=== PATIENT | female | born 1960 | race Caucasian/White ===

== ENCOUNTER 2020-07-28 08:55 | Day surgery (SDC) | payer OTHER ==
--- NOTE | 2020-07-27 12:41 | EKG ---
[facility] [address] [facility] [place], [place] [address] Signed Normal sinus rhythm Normal ECG No previous ECGs available Confirmed by CHEY LOWE DO ([id number]) on 07/27/2020 12:41:06 PM Electronically Signed By: CHEY LOWE DO 07/27/20 1241 PATIENT NAME: SABRA LEONARDA CUI Electrocardiogram DATE OF : 62 PHYSICIAN: CHEY LOWE DO REPORT #: [id number] REPORT IS CONFIDENTIAL AND NOT TO BE RELEASED WITHOUT AUTHORIZATION
[~2020-07-28] VITALS: Ht 162.6 cm; Wt 67.0 kg
[~2020-07-28 08:55] MED LIST: ALLEGRA-D 24 H1 EACH PO; BRAIN MIGHT-DH1 EACH PO; ESTRACE42.5 GM VAGINAL; NASACORT10.8 ML; NORVASC5 MG PO; OSTERA TABLET1 EACH PO; PAXIL10 MG PO
--- NOTE | 2020-07-28 09:31 | NUR ---
07/03/20 FELL SEEING CHIROPRACTOR FOR BACK.
--- NOTE | 2020-07-28 11:44 | NUR ---
PATIENT BACK IN DAY SURGERY ROOM FROM PACU. DENIES PAIN. VS CHECKED. IV SITE WNL. PATIENT REQUESTED SCDs OFF. PATIENT STATES FEELING "RESTLESS AND LOOPY." NO OTHER NEEDS AT THIS TIME. CALL LIGHT WITHIN REACH. LISSETTE WATER PLACED AT BEDSIDE.
--- NOTE | 2020-07-28 11:44 | NUR ---
07/28/20 1144 Marcelina Cabrera 1101 PT ARRIVED IN PACU SLEEPY WITH NO C/O'S LAYING ON L SIDE. 1110 PT REPOSITIONED SELF TO R SIDE. NO C/O'S. 1120 PT ASKING QUESTIONS ABOUT SURGERY AND ANESTHESIA. ALL QUESTIONS ANSWERED. 1135 TO DS. REPORT GIVEN TO RN. CALL LIGHT ON BED.
--- NOTE | 2020-07-28 12:05 | NUR ---
PT USES CALL LIGHT TO NOTIFY DS STAFF OF URGE TO VOID. PT DENIES ANY DIZZINESS OR NAUSEA AND HAS STEADY GAIT TO BATHROOM WITH RN ASSIST. PT ABLE TO VOID APPROX 400 MLS DILUTE YELLOW URINE WITH NO PROBLEMS. PT BACK TO DS RM 3 TO WAIT UNTIL DC CRITERIA IS MET. PT PROVIDED PUDDING, CALL LIGHT WITHIN REACH.
--- NOTE | 2020-07-28 12:45 | NUR ---
PT CALLED AIRLINE CAPTAIN LIGHT AND PT REPORTS BEING COLD AND WOULD LIKE TO GET DRESSED. VSS AND PT UP AT EDGE OF BED AND STEADY ON HER FEET, PT DRESSES HERSELF.
--- NOTE | 2020-07-28 13:43 | NUR ---
1245: VS CHECKED. IV DC'D WNL. DISCHARGE INSTRUCTIONS GIVEN TO PATIENT. 1255: PATIENT DISCHARGED TO HOME VIA WHEELCHAIR WITH BROTHER.
--- NOTE | 2020-08-04 15:28 | OR ---
[facility] [address] [place], [place] [address] Signed DATE OF OPERATION: 07/28/2020 SURGEON: Jose Velasquez MD PREOPERATIVE DIAGNOSIS: Oral lesion. POSTOPERATIVE DIAGNOSIS: Oral lesion. PROCEDURE: Excisional biopsy of oral lesion. ANESTHESIA: General, LMA; CALIBRATION SPECIALIST, Calderon. PREOPERATIVE HISTORY: Elham is a 59-year-old lady with oral lesions, very inflamed, friable, ulcerated. She was taken to the operating room for biopsy for pathologic diagnosis. PROCEDURE AND FINDINGS: After informed consent, the patient was taken to the operating room, placed in the supine position, where general LMA anesthesia was induced. The patient and procedure were verified. Headlight exam of the oral cavity showed a very red, prominent oral lesions on the mandibular gingiva anteriorly extended from about canine to canine from the attached gingival edge superiorly down about residential to the buccal gingival sulcus, this was very reddish, friable looking tissue. Several wedge biopsies were taken with #15 blade, sent to pathology for special handling immunofluorescence and H and E. The biopsy sites bled prominently and this bleeding was controlled with Coblation. Hemostasis was obtained. Pharynx suctioned clear of blood secretions. The patient was then awakened, extubated, transported to the recovery room in good condition. No complications. Blood loss minimal. A 0.25% Marcaine with epi was injected around the biopsy sites. No drains. No complications. Jose Velasquez MD Electronically Signed By: JOSE VELASQUEZ MD 08/04/20 1528 PATIENT NAME: ELHAM LEONARD OPERATIVE REPORT DATE OF : 62 REPORT #: [id number] PHYSICIAN: JOSE VELASQUEZ MD PCP: PAMELA ODONNELL DO REPORT IS CONFIDENTIAL AND NOT TO BE RELEASED WITHOUT AUTHORIZATION [address] [address] Signed /MODL /[id number] Copies: ~ Electronically Signed By: JOSE VELASQUEZ MD 08/04/20 1528 PATIENT NAME: ELHAM LEONARD OPERATIVE REPORT DATE OF : 62 REPORT #: [id number] PHYSICIAN: JOSE VELASQUEZ MD PCP: PAMELA ODONNELL DO REPORT IS CONFIDENTIAL AND NOT TO BE RELEASED WITHOUT AUTHORIZATION
--- NOTE | 2020-08-05 12:54 | PATH ---
[facility] [address] [place], [place] [address] Signed SPECIMEN(S): B ANTERIOR MANDIBLE GUM IN OSCAR SPECIMEN(S): A ANTERIOR MANDIBLE GUM SPECIMEN SOURCE: A. ANTERIOR MANDIBLE GUM B. ANTERIOR MANDIBLE GUM IN OSCAR CLINICAL HISTORY: Pre/Postop Diagnosis: 6-month history of oral lesions, along mandible anterior. See attached HP. FINAL PATHOLOGIC DIAGNOSIS: A. Anterior mandible, gingiva, biopsy: - Ulcerated surface squamous epithelium with underlying dense plasma cell inflammation. - See Comment. B. Anterior mandible, gingiva, biopsy for DIF: - No immunofluorescence performed (see Comment). COMMENT: The observed histologic features appear reactive in nature, with no evidence of neoplasia identified on multiple levels reviewed. The surface epithelium is partially ulcerated, and the underlying dense inflammatory infiltrate is composed predominantly of plasma cells, intermixed with lymphocytes and neutrophils. Goree and Lambda expression via in situ hybridization confirms a polyclonal plasma cell population, consistent with a reactive process. No definitive micro-organisms are identified with GMS special stain or T Pallidum immunostain. Tissue controls react appropriately. Overall, plasma cell gingivitis is most strongly considered based on the noted histologic features and the described clinical presentation. Plasma cell gingivitis may occur as a hypersensitivity response to specific foods, gum, mints, candies, or oral hygiene products, or may be idiopathic in nature. A few suggested references are included below for additional information, if desired. Continued clinical correlation and surveillance is encouraged. While no evidence of a neoplastic process is seen in the tissue provided, rebiopsy may be warranted if the areas of concern exhibit changes indicative of neoplastic development or progression. This case was reviewed in consultation with Aidee Swain DDS, MS, Board PATIENT NAME: JILL LEONARD PATHOLOGY DATE OF : 62 REPORT #: [id number] PHYSICIAN: OBDULIO PATHOLOGY PCP: PAMELA ODONNELL DO REPORT IS CONFIDENTIAL AND NOT TO BE RELEASED WITHOUT AUTHORIZATION [facility] [address] [place], [place] [address] Signed Certified Oral and Maxillofacial Pathologist, and with Juan Bobo M.D., MPH, Board Certified Hematopathologist. As per Dr. Swain's discussion with Dr. Velasquez via telephone on 08/04/2020, immunofluorescence was not performed in this case, based on the histologic features of part A. REF: Subha Y, Wesly S, Kenzie MS, Josh M. 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 Case Rep [place]. 2018Jan 28;2019. Reymundo JS, Christopher DA, Carmen VR, et al. Plasma Cell Gingivitis A Conflict of Diagnosis (Case Report). Journal of Clinical and Diagnostic Research, 2016 Nov, Vol 10(11): [id number]. Leonarda BS, Cam NR, Mario PS, et al. Plasma-Cell Gingivitis a Challenge to the Oral Physician. Contemp Clin [place] 2019 Aug-Oct; 1-(3):565-570. TWK:BRIANNA: GP:abelardo:C2NR MICROSCOPIC EXAMINATION: Histologic sections of all submitted blocks are examined by light microscopy. These findings, together with the gross examination, support the pathologic diagnosis. GROSS DESCRIPTION: The specimen, labeled "TE, A.," and designated on the requisition "mandible anterior gum lesion," is received in formalin and consists of one rajput-pink mucosal tissue fragment measuring 0.6 x 0.4 x 0.3 cm. Specimen is entirely submitted in cassette (A1). Note: Second container received with tissue fragment in Oscar media for immunofluorescence, forwarded to Faye. Per Dr. Vyas, two pieces of tissue received fresh. One placed in Oscar fixative for IF, the other placed in formalin for routine. AT (under the direct supervision of a pathologist) The Gross Description was prepared using a voice recognition system. The report was reviewed for accuracy; however, sound-alike word errors, addition and/or deletions may occur. If there is any question about this report, please contact Client Services. PERFORMING LABORATORY: The technical component was performed by [facility], [address] [place], [place] [id number] (Seat Mender: Christina Gomez MD; CLIA# [id number]). The professional interpretation was performed by [facility], [facility], [address] [place] [address]. PATIENT NAME: JILL LEONARD PATHOLOGY DATE OF : 62 REPORT #: [id number] PHYSICIAN: OBDULIO PATHOLOGY PCP: PAMELA ODONNELL DO REPORT IS CONFIDENTIAL AND NOT TO BE RELEASED WITHOUT AUTHORIZATION [facility] [address] [place] [id number] Signed Diagnostician: Tristin Sweet MD Pathologist Electronically Signed 08/05/2020 Copies: ~ PATIENT NAME: JILL LEONARD PATHOLOGY DATE OF : 62 REPORT #: [id number] PHYSICIAN: OBDULIO ESPINAL PCP: PAMELA ODONNELL DO REPORT IS CONFIDENTIAL AND NOT TO BE RELEASED WITHOUT AUTHORIZATION
== END 2020-07-28 12:55 | disposition home or self-care (01) ==
LOC: DS 08:55 → OPS 08:55 → DS 11:00 → OPS 12:55
PROVIDERS: ATTEND Otolaryngology
PROC: 0CB Mouth and Throat, Excision (ICD-10-PCS; principal; 2020-07-28 11:00)
DX: K06.8 Other specified disorders of gingiva and edentulous alveolar ridge (principal); I10 Essential (primary) hypertension; E78.00 Pure hypercholesterolemia, unspecified; G47.30 Sleep apnea, unspecified; Z88.1 Allergy status to other antibiotic agents; Z88.0 Allergy status to penicillin; Z88.8 Allergy status to other drugs, medicaments and biological substances; Z91.030 Bee allergy status
CPT/HCPCS: 00170; 80053; 85025; 93005; 93010; J1100; J1885; J2001; J2405; J2704; J7121

== ENCOUNTER 2023-02-27 15:14 | Inpatient (IN) | payer OTHER ==
[~2023-02-27] VITALS: Ht 162.6 cm; Wt 71.0 kg
[2023-02-27 16:04] LABS: BASOPHILS 0.8 % (0-2); EOSINOPHILS 1.9 % (0-6); HEMATOCRIT 43.5 % (35.0-50.0); HEMOGLOBIN 14.4 g/dL (12.0-18.0); LYMPHOCYTES 24.8 % (24-44); MCH 27.9 (27-36); MCHC 33.1 g/dl (30-36); MCV 84.5 fl (81-99); MONOCYTES 9.5 % (0-12); PLATELET COUNT 197 K/uL (140-440); RBC 5.15 M/ul (4.3-5.7); RDW 13.3 (10.5-15.0)
[2023-02-27 16:16] LABS: INR 0.97 (0.80-1.30); PARTIAL THROMBOPLASTIN TIME 25.8 Sec (22.9-41.3); PROTIME 12.2 Sec (11.2-14.2)
[2023-02-27 16:20] LABS: ALBUMIN 4.1 g/dL (3.4-5.0); ANION GAP 12.4 (7-21); BUN/CREATININE RATIO 10.97 (6.0-28.6); CREATININE, SERUM 0.82 mg/dL (0.55-1.02); POTASSIUM 3.4 mmol/L (3.5-5.1); PROTEIN, TOTAL 8.2 g/dL (6.4-8.2)
[2023-02-27 16:46] LABS: ABO O; ANTIBODY SCREEN NEGATIVE; RH POSITIVE
[2023-02-27 17:47] LABS: BILIRUBIN, URINE NEGATIVE (negative); BLOOD/HGB, URINE NEGATIVE (Negative); KETONE, URINE NEGATIVE (Negative); LEUK ESTERASE, URINE NEGATIVE (negative); NITRITE, URINE NEGATIVE (negative); PH, URINE 6.5 (5-7)
--- NOTE | 2023-02-27 20:45 | NUR ---
PT TO FLOOR VIA STRETCHER AND ED RN. BEDSIDE REPORT RECEIVED. PT ALERT AND ORIENTED. INDEPENDENT TO BR TO VOID. BACK TO BED. DENIES PAIN OR NAUSEA. VS OBTAINED. IVF/ABX INFUSING PER ORDER. BIOPROCESSING MANUFACTURING TECHNICIAN IN ROOM FOR ADMISSION.
[2023-02-27 20:47] VITALS: BP 160/78
--- NOTE | 2023-02-27 21:48 | NUR ---
ADMISSION ASSESSMENT COMPLETE. SCHEDULED MEDS ADMIN PER EMAR. PT REPORTS LOWER ABD PAIN 04/22. PRN FOR PAIN ADMIN. WARM COMPRESS PROVIDED. IVF INFUSING WNL. BOWEL TONES ACTIVE. ABD SOFT. CLEAR LIQUIDS PROVIDED. PT ORIENTED TO ROOM AND NURSE CALL LIGHT. PT DENIES QUESTIONS OR CONCERNS. CALL LIGHT IN REACH.
--- NOTE | 2023-02-27 23:10 | NUR ---
SBA PATIENT CALLED TO USE THE BATHROOM. PATIENT VOIDED 375ML YELLOW URINE. PATIENT IS BACK IN BED. DENIES FURTHER NEEDS AT THIS TIME.
[2023-02-28] VITALS (9 sets, daily range): BP systolic 11–143; BP diastolic 57–87
--- NOTE | 2023-02-28 01:55 | NUR ---
PT RESTING ON RIGHT SIDE WITH EYES CLOSED. AWAKENS EASILY. VS AND I&O OBTAINED. PT DENIES PAIN OR NAUSEA. ABD ASSESSMENT UNCHANGED. NO NEEDS AT THIS TIME.
--- NOTE | 2023-02-28 05:53 | NUR ---
PT RESTING WITH EYES CLOSED. AWAKENS EASILY. VS AND I&O OBTAINED. PT DENIES ABD PAIN OR NAUSEA. PRN TYLENOL GIVEN FOR "CAFFEINE WITHDRAWAL." NEW BAG IVF INFUSING WNL. PT DENIES FURTHER NEEDS. CALL LIGHT IN REACH.
--- NOTE | 2023-02-28 06:35 | NUR ---
SBA PATIENT GOT UP TO USE THE RESTROOM. PATIENT VOIDED 650ML YELLOW URINE. PATIENT IS BACK IN BED. CHICKEN BROTH PROVIDED PER PATIENT. NO OTHER NEEDS AT THIS TIME.
--- NOTE | 2023-02-28 07:00 | NUR ---
BEDSIDE HANDOFF REPORT RECEIVED FROM VOCAL ARTIST RN. PT RESTING IN BED, DISCUSSED PLAN OF CARE FOR THE DAY. PT DENIES NEEDS AT THIS TIME.
--- NOTE | 2023-02-28 08:10 | NUR ---
PT RESTING IN BED. MORNING ASSESSMENT COMPLETED. PT DENIES NAUSEA, RLQ ABD PAIN WITH PALPATION. MORNING MEDICATIONS ADMINISTERED. PT REFUSED LOVENOX INJECTION, EDUCATED ON DVT PROPHYLAXIS BUT CONTINUES TO REFUSE. MIRALAX GIVEN WITH CUP OF ICE. PT DENIES OTHER NEEDS AT THIS TIME.
--- NOTE | 2023-02-28 08:56 | CONS ---
[facility] [address] [place], [place] [address] Signed DATE OF CONSULTATION: 02/28/2023 CHIEF COMPLAINT: Rectal bleeding. 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 She is in need of a followup colonoscopy. At that time, she had no lower GI complaints. In 2006 at the age of 53, she was having some rectal bleeding and left-sided colitis. She had a colonoscopy and was treated with antibiotics and did better. She later had a supracervical ovary-sparing hysterectomy for her endometriosis in 2009 in [place], [place]. A few weeks later, she had to go back for a laparotomy and lysis of adhesions with the same surgeon and then in 2017 at the age of 56, she had a colonoscopy in [place], [place] and a precancerous polyp had been removed. She was asked to follow up every five years. Her brother, Joshua, happens to live with her. He had multiple colonic polyps removed at age 59 and has been asked to follow up every five years. Elham tells me I did the colonoscopy for her brother. Elham told the ER physician that she had been feeling ill since yesterday. She had some nausea and vomiting. She had a hard bowel movement containing pellets and then later some diarrhea. She saw some blood associated with that. She decided to come to the emergency room for evaluation. She is actually tender just to the right of the suprapubic midline. She told me the last time it was higher up in the left side. Her white count was up at 15,[address] scan confirmed what looks like some inflammatory changes in the descending colon, most likely from ischemic colitis according to the radiologist. She was given some IV fluids and Levaquin and Flagyl and I have been asked to admit her as a general surgeon on-call. She tells me she has done well overnight. She was curious if she should go home this morning. Afterwards she thought maybe she would stay for her bowel prep and a colonoscopy maybe tomorrow or the next day depending on her clinical course. PAST MEDICAL HISTORY: Hypertension, hyperlipidemia, sleep apnea on CPAP, impaired fasting glucose atopic dermatitis, plasma cell gingivitis, left lower extremity injury and endometriosis. PAST SURGICAL HISTORY: Includes a colonoscopy in [place], [place] for her colitis, rectal bleeding and hyperplastic polyp in 2006 at the age of 53. A colonoscopy in [place], [place] for a precancerous polyp in 2017 at the age of 56. Cervical sparing hysterectomy for endometriosis in 2009 in [place], [place] followed by laparotomy and lysis of adhesions in May of that same year. ALLERGIES: Zoloft caused angioedema. Penicillin caused rash. Lisinopril caused nausea. Rocephin Electronically Signed By: JIL MARADIAGA MD 02/28/23 0856 PATIENT NAME: ELHAM LEONARD CONSULTATION DATE OF : 62 REPORT #: [id number] PHYSICIAN: JIL MARADIAGA MD PCP: ROCK ODONNELL DO REPORT IS CONFIDENTIAL AND NOT TO BE RELEASED WITHOUT AUTHORIZATION [address] [address] Signed causes a rash. Amoxicillin causes a rash. Erythromycin caused allergy. MEDICATIONS: 1. Estrace. 2. Greer. 3. Ibuprofen. 4. Nasacort. 5. Vitamin B. 6. Vitamin D. 7. Norvasc. 8. Paroxetine. 9. Triamcinolone 0.1% cream p.r.n. REVIEW OF SYSTEMS: She had 10 systems reviewed and really no new issues other than what she describes in the history of present illness and she talked about her ankle injury in May 2022. SOCIAL HISTORY: She said her dad was a chain smoker. Her brother Joshua smokes but he has to go outside. She has never been a smoker. She is and has three children. 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 She also helps at [employer]. Dr. Rock Odonnell is her primary care provider. She prefers the [facility]. Her son, Magdi has a who is in medical school in [place], [place]. His phone number is [phone]. FAMILY HISTORY: Her brother Joshua had multiple colonic polyps removed at age 59 and he is going to follow up every five years. Her father of lung cancer. Mom had cardiomyopathy. Her paternal grandmother had vaginal cancer and cardiomyopathy. Her siblings have osteoporosis and depression. Her brother had colonic polyps at age 59. PHYSICAL EXAMINATION: VITAL SIGNS: Her blood pressure is 125/72, heart rate 70, respiratory rate 16, temperature is 97.5, she is 99% on room air. She is 5 feet 4 inches at 71 kg with a body mass index of 26. GENERAL: Elham is a 62-year-old female, lying supine in her hospital bed. She is alert, awake, and interactive. She is in no acute distress. She is not systemically ill or toxic. She has a full round face. LUNGS: Clear to auscultation bilaterally. HEART: Regular rate and rhythm without murmurs. ABDOMEN: Generally soft, flat with some mild suprapubic tenderness slightly off to the right in the midline. RECTAL: Exam is not repeated this morning. LABORATORY DATA: Electronically Signed By: JIL MARADIAGA MD 02/28/23 0856 PATIENT NAME: ELHAM LEONARD CONSULTATION DATE OF : 62 REPORT #: [id number] PHYSICIAN: JIL MARADIAGA MD PCP: ROCK ODONNELL DO REPORT IS CONFIDENTIAL AND NOT TO BE RELEASED WITHOUT AUTHORIZATION [facility] [address] [place], [place] [address] Signed Her white blood cell count is 15,000, hemoglobin 14, neutrophils 63, platelets 197, potassium 3.4, creatinine 0.8. Urinalysis negative. INR is 0.9. Liver function tests are negative. Albumin is 1.1. C diff toxin apparently was sent in the ER and that is pending. An EKG was not performed. Her fecal occult blood test apparently was performed in the ER, but I do not see those results. RADIOGRAPHIC STUDIES: The CT scan report shows some inflammation of the descending colon. The rest of the colon is fine. 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 She does not have a history of smoking, although her father was a chain smoker. She told me she did quite well on IV fluids and antibiotics back in 2006. I think we are going to continue that here. We will use Levaquin and Flagyl due to her allergies. We will give her a small amount of potassium today and let her have some clear liquids along with some MiraLAX. We will withhold any Dulcolax pills. Hopefully that will go well. We will plan on doing a colonoscopy probably tomorrow. If things are going well, she may go home on Levaquin and Flagyl. She knows if things would decline, she might need surgery but that would only be if she got significantly worse. She has expressed understanding and agrees with the above plan. Jil Maradiaga MD ALB/MODL /[id number] cc: MD Rock Harmon DO Copies: JIL MARADIAGA MD, ARIAN DO ~ Electronically Signed By: JIL MARADIAGA MD 02/28/23 0856 PATIENT NAME: ELHAM LEONARD CONSULTATION DATE OF : 62 REPORT #: [id number] PHYSICIAN: JIL MARADIAGA MD PCP: ROCK ODONNELL DO REPORT IS CONFIDENTIAL AND NOT TO BE RELEASED WITHOUT AUTHORIZATION
--- NOTE | 2023-02-28 09:18 | NUR ---
PT UP TO RESTROOM AND BACK TO BED INDEPENDENTLY. PT NOW BACK TO BED. WARM BROTH GIVEN. WHITE BOARD UPDATED. CALL LIGHT IN REACH. NO FURTHER NEEDS AT THIS TIME.
--- NOTE | 2023-02-28 10:11 | NUR ---
pt complaint of arm pain with potassium infusion, rate slowed to 100 ml/hr and infusing concurrently with iv fluids. pt denies other pain. pt denies needs at this time.
--- NOTE | 2023-02-28 10:20 | NUR ---
STOOL SAMPLE SENT TO LAB.
--- NOTE | 2023-02-28 10:30 | NUR ---
PT WITH MULTIPLE LOOSE STOOLS FROM BOWEL PREP, GIVEN BARRIER WIPES, BED SIDE COMMODE SET UP AT SIDE OF BED.
--- NOTE | 2023-02-28 11:06 | NUR ---
ROUNDS. PT INDISPOSED. DID NOT INTRUDE. PROVIDED SILENT PRAYER.
--- NOTE | 2023-02-28 11:28 | NUR ---
ATTEMPTED TO ASSESS PATIENT. PATIENT ON BSC, REQUEST RETURN THIS AFTERNOON.
--- NOTE | 2023-02-28 11:33 | NUR ---
UR NOTE [facility] INFLAMMATORY BOWEL DISEASE RRG ([facility]) 02/27/23 MET CLINICAL INDICATIONS FOR ADMISSION TO INPATIENT CARE
--- NOTE | 2023-02-28 13:27 | NUR ---
PATIENT IN BED WATCHING TV AT THIS TIME. VITALS AND I&O'S DONE AND CHARTED. CALL LIGHT IN REACH. NO FURTHER NEEDS AT THIS TIME.
--- NOTE | 2023-02-28 14:50 | NUR ---
PT RESTING IN BED. PT REQUESTING TYLENOL FOR MILD ABD APIN 2/10, GIVEN. PT WITH CLEAR GREEN/YELLOW STOOL. PT DENIES OTHER NEEDS AT THIS TIME.
--- NOTE | 2023-02-28 16:24 | NUR ---
PT RESTING IN BED, C/O "SORE BOTTOM" FROM BOWEL PREP. BARRIER CREAM GIVEN TO PT. NO OTHER COMPLAINTS OR REQUESTS AT THIS TIME.
--- NOTE | 2023-02-28 17:45 | NUR ---
pt's gown changed. pt resting in bed eating clear liquid diet per order. no complaints or requests at this time
--- NOTE | 2023-02-28 19:27 | NUR ---
REPORT RECEIVED FROM DAY SHIFT RN. PT LYING IN BED ALERT AND ORIENTED. DENIES NEEDS. WHITE BOARD UPDATED. CALL LIGHT IN REACH.
--- NOTE | 2023-02-28 20:52 | NUR ---
CALL LIGHT ANSWERED. pt WITH LIQUID STOOL ON FLOOR STATES "I THINK I PULLED MY IV". IV SITE ASSESSED, FLUSHED WNL. IVF INFUSING ORDERED. ROOM CLEANED. COOMMODE EMPTIED, GREEN/CLEAR LIQUID STOOL. NEW GOWN AND ATTENDS PLACED ON pt. VSS. PRIMARY RN NOTIFIED.
--- NOTE | 2023-02-28 21:01 | NUR ---
EVENING ASSESSMENT COMPLETE. SCHEDULED MEDS ADMIN PER EMAR. PT REPORTS "ANNOYING" LOWER ABD PAIN. AGREES TO WAIT FOR PRN TYLENOL ADMINISTRATION. REPORTS SLIGHT NAUSEA. REFUSES PRN N/V WHEN OFFERED. WARM COMPRESS PROVIDED FOR ABD. BOWEL TONES ACTIVE. ABD SOFT. DISCUSSED NPO STATUS AT MIDNIGHT FOR PROCEDURE TOMORROW. PT VERBALIZES UNDERSTANDING. NO FURTHER NEEDS AT THIS TIME. CALL LIGHT IN REACH.
--- NOTE | 2023-02-28 22:53 | EKG ---
[facility] [address] [facility] [place] [address] Signed Normal sinus rhythm Normal ECG When compared with ECG of 27-JUL-2020 07:43, No significant change was found Confirmed by Cayla Morley MD () on 02/28/2023 10:52:44 PM Electronically Signed By: CAYLA MORLEY MD 02/28/23 2253 PATIENT NAME: JILL LEONARD Electrocardiogram DATE OF : 62 PHYSICIAN: CAYLA MORLEY MD REPORT #: [id number] REPORT IS CONFIDENTIAL AND NOT TO BE RELEASED WITHOUT AUTHORIZATION
--- NOTE | 2023-02-28 23:23 | NUR ---
PT UP TO BR TO VOID 200 ML CLEAR YELLOW URINE. BACK TO BED, ALON WELL. PT REPORTS ABD PAIN 1-2/10 AND "UNCOMFORTABLE" PRN FOR PAIN ADMIN PER EMAR. PERSONAL CPAP IN PLACE. PT DENIES FURTHER NEEDS.
--- NOTE | 2023-03-01 02:08 | NUR ---
PT RESTING ON RIGHT SIDE WITH CPAP IN PLACE. RESPIRATIONS EVEN. NEW BAG IVF INFUSING PER ORDER. CALL LIGHT IN REACH.
[2023-03-01 02:54] VITALS: BP 138/80
--- NOTE | 2023-03-01 04:05 | NUR ---
PT RESTING IN BED WITH EYES CLOSED. RESPIRATIONS EVEN. CALL LIGHT IN REACH.
[2023-03-01 05:32] LABS: BASOPHILS 0.8 % (0-2); EOSINOPHILS 4.2 % (0-6); HEMATOCRIT 37.7 % (35.0-50.0); HEMOGLOBIN 12.7 g/dL (12.0-18.0); LYMPHOCYTES 29.9 % (24-44); MCH 28.3 (27-36); MCHC 33.8 g/dl (30-36); MCV 83.8 fl (81-99); MONOCYTES 9.4 % (0-12); NEUTROPHILS 55.7 % (39-80); PLATELET COUNT 175 K/uL (140-440); RDW 13.4 (10.5-15.0)
[2023-03-01 05:39] VITALS: BP 133/73
[2023-03-01 05:47] LABS: ANION GAP 11.2 (7-21); BUN/CREATININE RATIO 5.47 (6.0-28.6); CALCIUM 8.3 mg/dL (8.5-10.1); CREATININE, SERUM 0.73 mg/dL (0.55-1.02); MAGNESIUM 1.3 mg/dL (1.8-2.4); PHOSPHORUS, INORGANIC 3.5 mg/dL (2.5-4.9); POTASSIUM 3.2 mmol/L (3.5-5.1)
--- NOTE | 2023-03-01 06:02 | NUR ---
LAB IN ROOM FOR MORNING DRAW. VS AND I&O OBTAINED, WNL. PT REPORTS HEADACHE PAIN. DECLINES IV PAIN MEDICINE. TOO SOON FOR PRN TYLENOL. PT REPORTS SHE WILL WAIT IT OUT, ASSOCIATES GARCIA PAIN TO CAFFEINE WITHDRAWAL. PT REMAINS NPO FOR PROCEDURE. IVF INFUSING PER ORDER. ORAL SWABS PROVIDED. NO FURTHER NEEDS.
--- NOTE | 2023-03-01 06:17 | NUR ---
UPDATED ON RESULTS OF MORNING LABS. NEW TELEPHONE ORDERS RECEIVED VERIFIED WITH READBACK METHOD.
--- NOTE | 2023-03-01 07:25 | NUR ---
REPORT RECEIVED FROM SUMAC TANNER NURIS BERUMEN. PATIENT IS SITTING UPRIGHT IN BED AND TALKING ON THE PHONE. PATIENT STATED NO FURTHER NEEDS AT THIS TIME. CALL LIGHT AND PERSONAL BELONGINGS ARE WITHIN REACH.
--- NOTE | 2023-03-01 08:38 | NUR ---
PATIENT MORNING MEDICATIONS ADMINISTERED PER THE EMAR. PATIENT FULL ASSSESSMENT COMPLETE AND DOCUMENTED IN THE CHART. PATIENT LUNG SOUNDS ARE CLEAR BILATERALLY IN ALL LUNG PEREZ AND PATIENT IS ON ROOM AIR. NORMAL S1 AND S2 ON AUSCULTATION. BOWEL TONES ARE ACTIVE IN ALL FOUR QUADRANTS AND PATIENT STATED HAVING SOME TENDERNESSS IN THE ABDOMEN. PATIENT RADIAL AND PEDAL PULSES ARE STRONG BILATERALLY. PATIENT STATED NO PAIN AT THIS TIME. NO NUMBNESS AND TINGLING. IV SITE IS CLEAN, DRY, AND INTACT. PATIENT EXPRESSED BURNING DUE TO THE POTASSIUM RUNNING. PATIENT AMBULATED TO THE BATHROOM TO URINATE. PATIENT NOW BACK IN BED AND LYING DOWN. PATIENT STATED NO FURTHER NEEDS AT THIS TIME. CALL LIGHT AND PERSONAL BELONGINGS ARE WITHIN REACH.
--- NOTE | 2023-03-01 09:40 | NUR ---
UR NOTE 02/28/23 VARIANCE GL DAY 2 03/01/23 VARIANCE GL DAY 2
--- NOTE | 2023-03-01 09:57 | NUR ---
PATIENT IV SITE WRAPPED WITH A WASH CLOTH AND SOME COBAN. PATIENT IV POTASSIUM INFUSING AT THIS TIME. PATIENT STATED NO FURTHER NEEDS AT THIS TIME. CALL LIGHT AND PERSONAL BELONGINGS ARE WITHIN REACH.
--- NOTE | 2023-03-01 10:10 | NUR ---
PATIENT HEADED DOWN TO SURGERY. PATIENT WITH OR NURSE.
--- NOTE | 2023-03-01 10:25 | NUR ---
PATIENT OFF THE FLOOR TO OR. WILL ATTEMPT TO VISIT WHEN SHE RETURNS.
--- NOTE | 2023-03-01 10:31 | NUR ---
ROUNDS. PT NOT IN ROOM. PROVIDED PRAYER.
--- NOTE | 2023-03-01 12:07 | NUR ---
PATIENT BACK TO THE FLOOR. REPORT RECEIVED FROM NURIS MATHEWS IN DAY SURGERY/PACU. POTASSIUM CHLORIDE INFUSION RESUMED. PATIENT TOLERATING WELL. VITAL SIGNS TAKE. PATIENT LUNCH ORDERED. PATIENT STATED NO FURTHER NEEDS AT THIS TIME. CALL LIGHT AND PERSONAL BELONGINGS ARE WITHIN REACH.
[2023-03-01 12:08] VITALS: BP 133/65
--- NOTE | 2023-03-01 12:24 | NUR ---
PATIENT LUNCH TRAY ORDERED. FRESH ICE WATER GIVEN TO THE PATIENT. PATIENT STATED NO FURTHER NEEDS AT THIS TIME. CALL LIGHT AND PERSONAL BELONGINGS ARE WITHIN REACH.
--- NOTE | 2023-03-01 12:29 | NUR ---
03/01/23 1229 Samira Anderson 1123- PT ARRIVES TO PACU, SEMI GOODMAN LEFT LATERAL POSITION. PT NON REACTIVE TO STIMULUS ON ARRIVAL. ABD SOFT, NON DISTENDED. LR INFUSING TO LAC IV, O2 AT 6L PER MASK, SNORING RESPIRATIONS BUT AIRWAY OPEN. ALL MONITORS IN PLACE. 1130- PT WAKES ON OWN, REORIENTED TO TIME AND PLACE. DENIES NAUSEA. 1133- PT REQUESTING MORPHINE FOR 6/10 ABD PAIN. PT REPORTS IT IS CRAMPING PAIN. EDUCATED PT ON GAS USED DURING PROCEDURE AND ENCOURAGED TO PASS GAS WITHOUT MEDICATION MANAGEMENT. EDUCATED ON THE EFFECTS OF NARCOTIC MEDICATION ON THE BOWELS. PT IS ABLE TO PASS GAS. 1136- SATS REMAIN 100% ON 6L PER MASK, MOVED TO ROOM AIR AT THIS TIME. WILL CONTINUE TO MONITOR. 1148- PT UP TO BEDSIDE COMMODE TO URINATE, PASSING LARGE AMOUNT OF GAS. STANDBY ASSIST, PT TRANSFERRED WITHOUT DIFFICULTY. 1200- PT BACK TO BED AND TAKEN TO MED/SURG VIA BED TO ROOM 113. IV SALINE LOCKED, DENIES NAUSEA, 6/10 PAIN IMPROVING WITH PASSING GAS. REPORT TO BIANCA LAWLER AT BEDSIDE, NO SIGNS OF DISTRESS. ALERT AND ORIENTED. CARE OF PT TURNED OVER AT THIS TIME.
[2023-03-01 13:25] VITALS: BP 142/70
--- NOTE | 2023-03-01 13:29 | NUR ---
PATIENT POST OP VITAL SIGNS TAKEN AND DOCUMENTED IN THE CHART. PATIENT IS SITTING UPRIGHT IN THE BED AND TALKING WITH SOMEONE ON THE PHONE. PATIENT IV MEDICATIONS INFUSING AT THIS TIME. PATIENT GIVEN A WARM BLANKET. PATIENT STATED NO FURTHER NEEDS AT THIS TIME. CALL LIGHT AND PERSONAL BELONGINGS ARE WITHIN REACH.
[2023-03-01 14:16] LABS: C. DIFF TOXIN B GENE TCDB,PCR Not Detected (())
--- NOTE | 2023-03-01 14:30 | DS ---
[facility] [address], [place] [address] Signed ADMISSION DATE: 02/28/2023 DISCHARGE DATE: 03/01/2023 FINAL DIAGNOSES: 1. Tortuous colon. 2. Tiny rectal polyp. 3. Left-sided colitis. PROCEDURES: 1. Limited colonoscopy ([address] scan of abdomen and pelvis. 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 She responded nicely to conservative treatment. Later in 2018 at age 56, she had some polyps removed from her colon. Her brother has had multiple colonic polyps removed at age 59. She came in our ER not feeling well, having passed some hard pellet-like stool followed by diarrhea. She saw some blood. She was tender actually just above the suprapubic area on the right. This is different than what she had in the left mid quadrant in 2007. White count was up at 15,000. CT scan showed some edema to her left colon concerning for ischemic colitis. Therefore, I was asked to admit her as a general surgeon on-call. HOSPITAL COURSE: Elham was admitted as above on IV fluids and some Levaquin and Flagyl. By morning, she felt much better and wanted to go home. We decided to keep her one more day on bowel prep, which she tolerated quite nicely. White count went back to 8. Really no pain or tenderness whatsoever in the abdomen. We brought her down for a colonoscopy this morning with monitored anesthesia care. She had an extremely tortuous rectosigmoid junction, which took me well over 5 minutes to get around. We finally made it up to 45 cm and other areas angulated, we simply could get through. All that colon looks perfectly healthy without any edema or inflammation. There was no diverticula. There was only a tiny polyp at the top of the rectum. Her rectum is too short to retroflex the scope. We know she had a cervical sparing hysterectomy in [place], [place] a number years ago. Three weeks after that, she had to go back for laparotomy, lysis of adhesions from some bleeding. It looks like her sigmoid colon is pretty adherent in her pelvis. In that regard, she is going to need an outpatient barium enema. DISCHARGE PLANS AND MEDICATIONS: Elham is going to go back to her room after the colonoscopy. She will advance her diet. We will slow diabetes down. We anticipate she is going to do well, go home later Electronically Signed By: JIL MARADIAGA MD 03/01/23 1430 PATIENT NAME: ELHAM LEONARD DISCHARGE SUMMARY DATE OF : 62 REPORT #: [id number] PHYSICIAN: JIL MARADIAGA MD PCP: PAMELA ODONNELL DO REPORT IS CONFIDENTIAL AND NOT TO BE RELEASED WITHOUT AUTHORIZATION [facility] [address] [place], [place] [address] Signed this afternoon 1st thing in the morning. Her brother Joshua lives with her at the house. Her son Magdi is not here in [place], [place]. We did talk to him on the phone. She will have no new prescriptions. She can resume her chronic medications, but hold any aspirin or NSAIDs for one week to let the polypectomy sites heal. She will take diet as tolerated. She is welcome to go back to work in 24 hours. She will come to my office in 7 to 14 days for followup. We will go ahead and order an outpatient barium enema to evaluate the rest of the colon. Jil Maradiaga MD ALB/MODL /[id number] cc: DO Jil Aranda MD Copies: PAMELA ODONNELL ANDREW L MD ~ Electronically Signed By: JIL MARADIAGA MD 03/01/23 1430 PATIENT NAME: ELHAM LEONARD DISCHARGE SUMMARY DATE OF : 62 REPORT #: [id number] PHYSICIAN: JIL MARADIAGA MD PCP: PAMELA ODONNELL DO REPORT IS CONFIDENTIAL AND NOT TO BE RELEASED WITHOUT AUTHORIZATION
--- NOTE | 2023-03-01 14:31 | OR ---
[facility] [address], [place] [address] Signed DATE OF OPERATION: 03/01/2023 SURGEON: Jil Maradiaga MD PREOPERATIVE DIAGNOSES: 1. Recurrent left-sided colitis (). 2. Rectal bleeding. 3. Personal history of colonic polyps in 2018 at age 56. 4. A brother with multiple colonic polyps at age 59. POSTOPERATIVE DIAGNOSES: 1. 3 mm polyp at 12 cm in the rectum. 2. Rectosigmoid junction at 12-14 cm with severe angulation. 3. Severe angulated colon at 45 cm. 4. Tortuous sigmoid and left colon. PROCEDURE: Colonoscopy with hot biopsy up to 45 cm distal to splenic flexure. ESTIMATED BLOOD LOSS: None. 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 She had left-sided colitis associated with rectal bleeding and hyperplastic polyp. Later in 2018 at the age of 56, she underwent colonoscopy in [place], [place] and was told she had a precancerous polyp removed. Apparently, she is on the five year plan. She told me today that I helped her brother at age 59 and removed multiple colonic polyps as well. He is on the five year plan as well. She also had a cervical sparing hysterectomy for endometriosis in 2009 in [place], [place]. A few weeks later, she had to undergo laparotomy, lysis of adhesions because of some bleeding and scar tissue during that same year. She came in the emergency room not feeling particularly well on the day of admission. She talked about nausea and vomiting. She talked about some hard pellet-like stool followed by some diarrhea. She thinks there was blood associated with that stool. She seemed to be tender just to the right of the midline in the suprapubic area. She told me in 2006, she was tender in the left mid quadrant. Her white count was up at 15,000. The CT scan showed an edematous, inflamed looking descending colon. Most likely from ischemic colitis according to the radiologist. She was admitted on IV fluids and Levaquin and Flagyl. She did well overnight. The next morning, she had inquired about going home. Electronically Signed By: JIL MARADIAGA MD 03/01/23 1431 PATIENT NAME: ELHAM LEONARD OPERATIVE REPORT DATE OF : 62 REPORT #: [id number] PHYSICIAN: JIL MARADIAGA MD PCP: ROCK ODONNELL DO REPORT IS CONFIDENTIAL AND NOT TO BE RELEASED WITHOUT AUTHORIZATION [facility] [address], [place] [address] Signed I explained to her it is probably best we keep her at least one more day with the bowel prep in and look up into the colon. We had reviewed the colonoscopy. There is risk including, but not limited to gas bloating, crampy abdominal pain, bleeding, perforation requiring surgery, and missed diagnosis. We also reviewed the need for the MiraLAX. In these acute situations, we all use monitored anesthesia care with propofol infusion. That worked out well today because she has an extremely tortuous sigmoid colon. She had expressed understanding and wished to proceed. DESCRIPTION OF PROCEDURE: Elham was taken into our endoscopy suite and placed in the left lateral decubitus position. Our nurses and Elham told me she did very well with the bowel prep. Really no blood. She has no pain whatsoever. Her white count is down to normal at 8. Potassium and magnesium are just a little low from the bowel prep and we replaced those earlier today. She was given monitored anesthesia care with propofol infusion per our nurse disability coordinator. A digital rectal exam was performed and this was unremarkable. She had good sphincter tone. Really no external hemorrhoids. There were no masses. The adult colonoscope was introduced and advanced under direct visualization of the camera. In the very top of the rectum, she had a couple tiny 3 mm polyps removed with the hot biopsy forceps. Her rectosigmoid junction is around 12 to 14 cm. We really struggled and did not think we would get through this area. We finally did and we made it up the left colon a little ways. We had to roll her in the supine position and used abdominal compression and additional propofol. At 45 cm, we encountered another very angulated area. We never could get through this area. The scope was then slowly withdrawn. Her prep seemed to be quite excellent. The mucosa looked quite healthy without evidence of any inflammatory changes. I did not see any diverticula. Again, we came back down to that tortuous sigmoid colon, it is very adherent down in the pelvis following her hysterectomy. Once in the rectum, we made efforts to retroflex the scope several times without success. After this, the gas was suctioned out and the colonoscope removed. Elham tolerated procedure quite well. RECOMMENDATIONS: I will see Elham back in my office in 7 to 14 days to review her results. Once the polypectomy sites are healed, she should consider a barium enema to evaluate the full extent of her colon. Jil Maradiaga MD ALB/MODL Electronically Signed By: JIL MARADIAGA MD 03/01/23 1431 PATIENT NAME: ELHAM LEONARD OPERATIVE REPORT DATE OF : 62 REPORT #: [id number] PHYSICIAN: JIL MARADIAGA MD PCP: ROCK ODONNELL DO REPORT IS CONFIDENTIAL AND NOT TO BE RELEASED WITHOUT AUTHORIZATION [place] [id number] [facility] [place] [address] Signed /[id number] cc: MD Rock Harmon DO Copies: JIL MARADIAGA MD, ARIAN DO ~ Electronically Signed By: JIL MARADIAGA MD 03/01/23 1431 PATIENT NAME: ELHAM LEONARD OPERATIVE REPORT DATE OF : 62 REPORT #: [id number] PHYSICIAN: JIL MARADIAGA MD PCP: ROCK ODONNELL DO REPORT IS CONFIDENTIAL AND NOT TO BE RELEASED WITHOUT AUTHORIZATION
[2023-03-01 14:36] VITALS: BP 124/76
--- NOTE | 2023-03-01 14:50 | NUR ---
PATIENT VITAL SIGNS AND INTAKE AND OUTPUT VALUES DOCUMENTED IN THE CHART. PATIENT GIVEN PRN TYLENOL FOR PAIN OF 3/10. PATIENT BOWEL TONES ARE ACTIVE IN ALL FOUR QUADRANTS. PATIENT STATED HAVING TENDERNESS IN THE ABDOMINAL AREA. PATIENT ABLE TO VOID AND EAT LUNCH WITH NO PROBLEMS. PATIENT STATED NO FURTHER NEEDS AT THIS TIME. CALL LIGHT AND PERSONAL BELONGINGS ARE WITHIN REACH.
[2023-03-01 15:34] VITALS: BP 127/69
== END 2023-03-01 16:32 | disposition home or self-care (01) | DRG 394 ==
LOC: ED 15:14 → MS 15:16
PROVIDERS: Emergency Medicine; ADMIT Colon & Rectal Surgery; ATTEND Colon & Rectal Surgery
PROC: 0DBP8ZZ Excision of Rectum, Via Natural or Artificial Opening Endoscopic (ICD-10-PCS; principal; 2023-03-01 09:45)
DX: K55.8 Other vascular disorders of intestine (principal); K56.609 Unspecified intestinal obstruction, unspecified as to partial versus complete obstruction; Q43.8 Other specified congenital malformations of intestine; K62.1 Rectal polyp; G47.33 Obstructive sleep apnea (adult) (pediatric); E78.2 Mixed hyperlipidemia; F32.4 Major depressive disorder, single episode, in partial remission; E66.3 Overweight; I11.9 Hypertensive heart disease without heart failure; J30.1 Allergic rhinitis due to pollen; E87.6 Hypokalemia; E83.42 Hypomagnesemia; Z88.0 Allergy status to penicillin; Z88.8 Allergy status to other drugs, medicaments and biological substances; Z88.1 Allergy status to other antibiotic agents; Z86.010 Personal history of colon polyps; Z68.26 Body mass index [BMI] 26.0-26.9, adult
CPT/HCPCS: 36415; 74177; 80048; 80053; 81003; 83735; 84100; 85025; 85610; 85730; 86850; 86900; 86901; 87493; 93005; 93010; 96367; A9270; G0378; J1650; J1956; J2001; J2405; J2704; J3475; J3480; J3490; J7060; J7121; Q9967